=== PATIENT | female | born 1990 | race Two or more races ===

== ENCOUNTER 2022-06-28 06:25 | Inpatient (IN) | payer OTHER ==
[~2022-06-28] VITALS: Ht 167.6 cm; Wt 70.3 kg
[2022-06-28] MEDS ORDERED: PRENATABS RX T1 EACH PO (07:23)
[2022-06-28] MEDS ORDERED: FE C TABLET1 EACH PO (07:24)
== END 2022-07-01 18:49 | disposition home or self-care (01) | DRG 807 ==
LOC: LDR 06:25 → OB/GYN 15:52
PROVIDERS: ADMIT Specialist; ATTEND Specialist
PROC: 10E0XZZ Delivery of Products of Conception, External Approach (ICD-10-PCS; principal; 2022-06-28)
PROC: 0W8NXZZ Division of Female Perineum, External Approach (ICD-10-PCS; 2022-06-28)
PROC: 3E033VJ Introduction of Other Hormone into Peripheral Vein, Percutaneous Approach (ICD-10-PCS; 2022-06-28)
PROC: 3E0P7VZ Introduction of Hormone into Female Reproductive, Via Natural or Artificial Opening (ICD-10-PCS; 2022-06-28)
PROC: 4A1HXCZ Monitoring of Products of Conception, Cardiac Rate, External Approach (ICD-10-PCS; 2022-06-28)
DX: O80 Encounter for full-term uncomplicated delivery (principal); Z37.0 Single live birth; Z3A.37 37 weeks gestation of pregnancy; Z20.822 Contact with and (suspected) exposure to COVID-19